=== PATIENT | male | born 1975 | race Caucasian/White ===

== ENCOUNTER 2018-12-24 05:58 | Emergency (ER) | payer SELFPAY ==
[2018-12-24 06:07] VITALS: BP 114/82
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
== END 2018-12-24 06:52 | disposition home or self-care (01) ==
DX: M23.92 Unspecified internal derangement of left knee (principal); X50.9XXA Other and unspecified overexertion or strenuous movements or postures, initial encounter; Y93.55 Activity, bike riding

== ENCOUNTER → 2018-12-25 | Outpatient (CLI) | payer OTHER | LOC: FIMAGING 09:35 | PROVIDERS: ATTEND Orthopaedic Surgery | DX: S82.145A Nondisplaced bicondylar fracture of left tibia, initial encounter for closed fracture (principal); S83.512A Sprain of anterior cruciate ligament of left knee, initial encounter; S83.242A Other tear of medial meniscus, current injury, left knee, initial encounter; M25.462 Effusion, left knee ==